=== PATIENT | male | born 1955 | race Caucasian/White ===

== ENCOUNTER → 2024-10-10 13:44 | Outpatient (REF) | payer OTHER, SELFPAY | LOC: RAD 13:44 | PROVIDERS: ATTENDING PHYSICIAN Family Medicine | DX: M54.50 Low back pain, unspecified (principal) | CPT/HCPCS: 72110 ==

== ENCOUNTER → 2025-06-16 16:29 | Outpatient (REF) | payer OTHER, SELFPAY ==
[2025-06-16 17:08] LABS: Urine Character Clear (Clear)
[2025-06-16 17:18] LABS: Urine Squamous Cell 0-2 /LPF (Few)
== END ==
LOC: REG 16:29
PROVIDERS: ATTENDING PHYSICIAN Specialist; FAMILY PHYSICIAN Family Medicine
DX: N39.0 Urinary tract infection, site not specified (principal)
CPT/HCPCS: 81003; 81015; 87086

== ENCOUNTER → 2025-06-23 07:33 | Outpatient (REF) | payer OTHER, SELFPAY | LOC: HWRAD 07:33 | PROVIDERS: ATTENDING PHYSICIAN Specialist; FAMILY PHYSICIAN Family Medicine | DX: R31.0 Gross hematuria (principal) | CPT/HCPCS: 76770 ==